=== PATIENT | female | born 1960 | race Caucasian/White ===

== ENCOUNTER → 2017-10-25 | Day surgery (SDC) | payer OTHER ==
--- NOTE | 2017-10-23 14:18 | Diagnostic Imaging Report ---
PROCEDURE: X-RAY CHEST, TWO VIEWS COMPARISON: None. INDICATIONS: PRE OPERATIVE CHEST X-RAY FOR FOOT SURGERY FINDINGS: LUNGS: Mild hyperinflation. No mass or infiltrate. Vascular markings are normal. PLEURA: No effusions or pneumothorax. HEART \T\ MEDIASTINUM: The heart is within normal size-limits. There is prominent soft tissue to the left of the trachea. This could be due to thyroid tissue or lymphadenopathy or ectatic vasculature. BONES \T\ SOFT TISSUES: Mild scoliosis. No focal osseous lesions. CONCLUSION: 1. Mild hyperinflation suggestive of small airways disease. 2. Prominent left paratracheal soft tissue. Recommend further characterization with CT of the neck. Dictated by: Norma Arguello M.D. on 10/23/2017 at 14:18 Electronically approved by: Norma Arguello M.D. on 10/23/2017 at 14:18
[~2017-10-25] MED LIST: AIRBORNE; BUPIVACAINE HCL 0.5% 10ML MPF VIAL INJ ONE; CEFAZOLIN SOD 2 GM/D5W 50ML 50 ML IV ONE; DEXAMETHASONE SOD PHOS INJ 4 MG/ML VIAL ONE; FENTANYL CITRATE/PF 100MCG/2 ML INJ ONE; LIDOCAINE HCL 2% LOCAL INJ 5 ML SDV VIAL INJ ONE; MIDAZOLAM HCL 2 MG/2 ML VIAL ONE; NAPROXEN; ONDANSETRON HCL INJ 2 MG/ML VIAL ONE; PROPOFOL IV EMULSION 10 MG/ML 20 ML VIAL ONE; SEVOFLURANE INHAL SOLN 250 ML PEN BTL ONE
--- OUTSIDE RECORDS SUMMARY | 2017-10-25 07:19 | XMS REPORT ---
Author Author [facility] Address Unknown Phone Unavailable Care Team Providers Care School Bus Driver/Mechanic Name Role Phone SHIRLEY MCDONALD Unavailable Unavailable Problems This patient has no known problems. Allergies, Adverse Reactions, Alerts This patient has no known allergies or adverse reactions. Medications This patient has no known medications. Results Test Description Test Time Test Comments Text Results Atomic Results Result Comments CHEST 2 VIEWS [place] [address] Patient Name: RICARDO SALMON MR #: [id number] : 1960 Age/Sex: 56/F Req # : [id number] Adm Physician: Ordered by: SHIRLEY MCDONALD DPM Report #: [id number] Location: OR Room/Bed: Procedure: [id number] DX/CHEST 2 VIEWS Exam Date: 10/23/17 Exam Time: 1330 REPORT STATUS: Signed PROCEDURE: X-RAY CHEST, TWO VIEWS COMPARISON: None. INDICATIONS: PRE OPERATIVE CHEST X-RAY FOR FOOT SURGERY FINDINGS: LUNGS: Mild hyperinflation. No mass or infiltrate. Vascular markings are normal. PLEURA: No effusions or pneumothorax. HEART T MEDIASTINUM: The heart is within normal size-limits. There is prominent soft tissue to the left of the trachea. This could be due to thyroid tissue or lymphadenopathy or ectatic vasculature. BONES T SOFT TISSUES: Mild scoliosis. No focal osseous lesions. CONCLUSION: 1. Mild hyperinflation suggestive of small airways disease. 2. Prominent left paratracheal soft tissue. Recommend further characterization with CT of the neck. Dictated by: Marissa Arguello M.D. on 10/23/2017 at 14:18 Electronically approved by: Marissa Arguello M.D. on 10/23/2017 at 14:18 Dictated By: MARISSA ARGUELLO MD [id number] Transcribed By: JONH on 10/23 1418 COPY TO: SHIRLEY MCDONALD DPM
--- NOTE | 2017-11-04 19:03 | Operative Report ---
DATE OF PROCEDURE: October 25, 2017 PREOPERATIVE DIAGNOSIS: Fractured, displaced 4th metatarsal, left foot. POSTOPERATIVE DIAGNOSIS: Fractured, displaced 4th metatarsal, left foot. TITLE OF OPERATION: Open reduction with internal fixation, 4th metatarsal, left foot. ANESTHESIA: General endotracheal. HEMOSTASIS: Left thigh tourniquet 350 mmHg. PROCEDURE IN DETAIL: The patient was taken to the operating room in a mildly sedated state, placed upon the operating table in the supine position. Following the induction of general anesthetic, the left lower extremity was elevated 60 degrees to exsanguinate before inflating pneumatic thigh tourniquet to 350 mm for hemostasis. The left lower extremity was placed upon the operating table prior to performing the following procedure. Procedure #1: Open reduction with internal fixation 4th metatarsal, left foot. A linear longitudinal incision was made overlying the dorsal aspect of the 4th metatarsal, left foot. Incision was deepened via sharp and blunt dissection down to the level of dorsal capsular structure. Care was taken to identify and retract all vital structures encountered. The head of the 4th metatarsal at the level of the surgical site remodeled utilizing oscillating saw. An extensor tenotomy was performed and the comminuted fracture which was dorsally and laterally displaced was able to be reapproximated under fluoroscopy with the head in the proper alignment. An 0.0455 K-wire was pinned from dorsal to plantar and then a 2nd from plantar to dorsal, both of which crossed through the fracture site and properly realign the joint. This then having been accomplished, the area was irrigated with copious amounts of sterile saline solution. Deep closure with 3-0 Vicryl. Subcutaneous closure with 4-0 Vicryl and skin closure with 4-0 nylon. Areas of surgery were blocked with 0.5 Marcaine and Decadron [place]. A human tissue allograft was then injected to facilitate healing. The K-wires were bent and cut to the appropriate lengths and left in place. Posterior splint was applied. The patient is already nonweightbearing. Return to see me within one more week postoperatively. Job#: [id number]
== END | disposition home or self-care (01) ==
LOC: OR 07:16
PROVIDERS: ATTEND Podiatrist Foot Surgery
DX: S92.342A Displaced fracture of fourth metatarsal bone, left foot, initial encounter for closed fracture (principal); F17.210 Nicotine dependence, cigarettes, uncomplicated; X58.XXXA Exposure to other specified factors, initial encounter; Z01.810 Encounter for preprocedural cardiovascular examination; Z01.818 Encounter for other preprocedural examination
CPT/HCPCS: 28485; 71046; 76000; 81025; 93005; J1100; J2001; J2250; J2405